=== PATIENT | male | born 2000 | race Caucasian/White ===

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

== ENCOUNTER 2018-01-18 10:27 | Emergency (ER) | payer MEDICAID ==
[2018-01-18 10:33] VITALS: BMI 17.7
[2018-01-18 10:35] VITALS: BP 118/76; PULSE 79; RESP 18; TEMP 98.4; O2SAT 98
--- NOTE | 2018-01-18 10:57 | C.PDOC ---
History Of Present Illness 17 y/o male presents to the ER complaining of pain to right buttock area that began 3 days ago. Patient has a history of folliculitis in the area. He has been applying warm compresses to area. Patient reports he was seen in our ED previouslt for similar symptoms, and medications he was given helped. He denies fever/chills, drainage. Time Seen by Provider: 01/18/18 10:37 Chief Complaint (Nursing): Abnormal Skin Integrity History Per: Patient History/Exam Limitations: no limitations Onset/Duration Of Symptoms: Days Current Symptoms Are (Timing): Still Present Severity: Mild Past Medical History Reviewed: Historical Data, Nursing Documentation, Vital Signs Vital Signs: Last Vital Signs Temp 98.4 F 01/18/18 10:32 Pulse 79 01/18/18 10:32 Resp 18 01/18/18 10:32 BP 118/76 01/18/18 10:32 Pulse Ox 98 01/18/18 11:12 - Medical History PMH: No Chronic Diseases Other PMH: Folliculitis Surgical History: No Surg Hx Family History: States: No Known Family Hx - Social History Hx Tobacco Use: No Hx Alcohol Use: No Hx Substance Use: No - Immunization History Hx Tetanus Toxoid Vaccination: No Hx Influenza Vaccination: No Hx Pneumococcal Vaccination: No Review Of Systems Constitutional: Negative for: Fever, Chills Cardiovascular: Negative for: Chest Pain Respiratory: Negative for: Shortness of Breath Skin: Positive for: Other (painful area near right buttocks) Physical Exam - Physical Exam Appears: Well, Non-toxic, No Acute Distress Skin: Warm, Dry, Other (Right medial buttock w/ 2 cm area of erythema with central pustule, no fluctuance) Head: Normacephalic Eye(s): bilateral: Normal Inspection Oral Mucosa: Moist Cardiovascular: Rhythm Regular Respiratory: Normal Breath Sounds, No Accessory Muscle Use, No Rales, No Rhonchi , No Wheezing Gastrointestinal/Abdominal: Normal Exam, Bowel Sounds, Soft, No Tenderness Extremity: Bilateral: Atraumatic, Normal ROM Neurological/Psych: Oriented x3 ED Course And Treatment O2 Sat by Pulse Oximetry: 98 (RA) Pulse Ox Interpretation: Normal Progress Note: Patient given Rxs for doxycycline and Mupirocin ointment. He was instructed to apply warm compresses and to follow up with PMD/clinic in 1-2 days. He understands he should return to ED if symptoms worsen. Disposition Counseled Patient/Family Regarding: Diagnosis, Need For Followup, Rx Given - Disposition Referrals: Bony Hutchinson MD [Staff Provider] - Disposition: HOME/ ROUTINE Disposition Time: 10:55 Condition: STABLE Additional Instructions: FOLLOW UP WITH YOUR DOCTOR IN 1-2 DAYS USE MEDICATIONS DIRECTED RETURN TO ER IF SYMPTOMS WORSEN Prescriptions: Doxycycline Monohydrate 100 mg PO BID #14 tablet Mupirocin 2% Ointment [Bactroban Ointment] 1 appl TP TID #1 tube Instructions: Folliculitis Forms: [employer] (Upper Sorbian) Print Language: TANZANIAN - POA Present On Arrival: None - Clinical Impression Clinical Impression: Folliculitis - Scribe Statement The provider has reviewed the documentation as recorded by the Scribe (Nerissa Robison) Provider Attestation: All medical record entries made by the Scribe were at my direction and personally dictated by me. I have reviewed the chart and agree that the record accurately reflects my personal performance of the history, physical exam, medical decision making, and the department course for this patient. I have also personally directed, reviewed, and agree with the discharge instructions and disposition.
== END 2018-01-18 11:10 | disposition home or self-care (01) ==
LOC: C.ER 10:27
DX: L73.9 Follicular disorder, unspecified (principal)